=== PATIENT | male | born 1945 | race Caucasian/White ===

== ENCOUNTER 2017-10-24 10:03 | Observation (INO) | payer MEDICARE, OTHER ==
[~2017-10-24] VITALS: Ht 188 cm; Wt 90.9 kg
--- NOTE | 2017-10-24 10:03 | NUR ---
PRT TO ROOM FOR TREATMENT VIA WHEELCHAIR
[2017-10-24] MEDS ORDERED: NAPROXEN250 MG PO (10:13)
[2017-10-24] MEDS ORDERED: CENTRUM SILVER PO (10:13)
[2017-10-24] MEDS ORDERED: OMEPRAZOLE10 MG PO (10:14)
[2017-10-24] MEDS ORDERED: ASPIRIN EC325 MG PO (10:14)
[2017-10-24] MEDS ORDERED: CLARITIN-D1 TA2 PO (10:15)
[2017-10-24] MEDS ORDERED: LISINOPRIL20 MG PO (10:15)
[2017-10-24] MEDS ORDERED: PROVENTIL HFA IN (10:17)
[2017-10-24] MEDS ORDERED: [UNRECOGNIZED DRUG - CODE] EX (10:17)
[2017-10-24 10:37] LABS: HEMATOCRIT 42.7 % (39.0-50.0); HEMOGLOBIN 14.3 g/dl (14.0-18.0); IMMATURE GRANULOCYTES 0.5 % (0.0-1.0); MEAN CELL VOLUME 92.8 fL CALC (80.0-100.0); MEAN CORPUSCULAR HGB 31.1 pG CALC (26.0-32.0); MEAN CORPUSCULAR HGB CONC 33.5 g/L CALC (32.0-36.0); NEUT# 3.99 thou/uL (1.82-7.42); RED BLOOD COUNT 4.6 mill/uL (4.70-6.10); RED CELL DISTRI WIDTH 12.7 % (11.5-15.5)
[2017-10-24 11:00] LABS: ALBUMIN 4.5 g/dL (3.2-5.0); ALKALINE PHOSPHATASE 79 u/l (38-126); ANION GAP 17 (6-22 (CALC)); BILIRUBIN, TOTAL 1.1 mg/dL (0.0-1.4); BUN 32 mg/dL (8-23); BUN/CREATININE RATIO 22 (12-20 (CALC)); CALCIUM 9.8 mg/dL (8.4-10.2); CARBON DIOXIDE 26 mmol/l (22-30); CHLORIDE 104 mmol/l (95-108); CREATININE 1.5 mg/dL (0.7-1.3); GFR 46 ML/MIN (>=60 (CALC)); GFR FOR AFR.AMER. 55 ML/MIN (>=60 (CALC)); GLUCOSE 155 mg/dL (82-115); POTASSIUM 4.5 mmol/l (3.5-5.1); SGOT/AST 23 u/l (19-48); SGPT/ALT 35 u/l (11-66); SODIUM 142 mmol/l (137-146); TOTAL PROTEIN 7.5 g/dL (6.3-8.2)
[2017-10-24 11:10] LABS: MYOGLOBIN 100 ng/mL (0 - 121)
--- NOTE | 2017-10-24 11:36 | NUR ---
PT SITTING UP IN BED , NO DISTRESS NOTED AT THIS TIME
--- NOTE | 2017-10-24 11:37 | NUR ---
STATES ANTIVERT HAS NOT HELPED YET.
--- NOTE | 2017-10-24 12:02 | NUR ---
UNABLE TO GIVE REPORT AT THIS TIME, NURSE FOR PT WILL CALL ME BACK WHEN AVAILABLE.
--- NOTE | 2017-10-24 12:12 | NUR ---
REPORT GIVEN TO LONNY FOR CONTINUATION OF CARE. PT AT THIS TIME SAYS DIZZINESS HAS GONE AWAY.
--- NOTE | 2017-10-24 12:15 | NUR ---
PT TAKEN TO MED SURG PER STRETCHER. STABLE TO ROOM.
[2017-10-24 12:19] VITALS: BP 130/70
--- NOTE | 2017-10-24 12:19 | NUR ---
PT ARRIVED TO FLOOR VIA STRETCHER ACCOMPANIED BY ED STAFF. PT AMBULATES INDEPENDENTLY. DENIES DIZZINESS AND NAUSEA. REPORTS RESOLUTION OF SYMPTOMS THAT BROUGHT PT TO ER. PT ORIENTED TO ROOM AND EQUIPMENT. PLAN OF CARE DISCUSSED. CALL LIGHT REVIEWED AND IN REACH. PT STATES UNDERSTANDING.
[2017-10-24] MEDS ORDERED: LIPITOR20 M1 PO (12:44)
[2017-10-24 15:28] VITALS: BP 111/62
--- NOTE | 2017-10-24 15:37 | NUR ---
PT SITTING IN CHAIR AT BEDSIDE. DR. HALEY IN ROOM.
[2017-10-24 19:00] VITALS: BP 138/61
--- NOTE | 2017-10-24 19:45 | NUR ---
PT SITTING UP IN BED WATCHING TV. PT IS ALERT ABND ORIENTED X3. PERRLA. LUNGS ARE CLEAR. RESP ARE EVEN AND UNLABORED. TELE IN PLACE. HR REGULAR. PULSES PALPABLE THROUGHOUT. NO EDEMA NOTED. 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 FACE SYMETRICAL. FOOT STRENGTH SYMMETRICAL. PT DENIES DIZZINES. PT DENIES NAUSEA. BS ACTIVE. PT REPORTS A NORMAL BOWEL MOVEMENT YESTERDAY. #20 RAC. SALINE LOCKED. NO REDNESS OR EDEMA NOTED AT SITE. WILL CONTINUE TO MONITOR
--- NOTE | 2017-10-25 | NUR ---
PT RESTING IN BED WITH EYES CLOSED. RESP ARE EVEN AND UNLABORED. NO DISTRESS NOTED. TELE IN PLACE. WILL CONTINUE TO MONITOR
[2017-10-25 00:15] VITALS: BP 122/69
--- NOTE | 2017-10-25 04:17 | NUR ---
PT RESTING IN BED WITH EYES CLOSED. RESP ARE EVEN AND UNLABORED. NO DISTRESS NOTED. TELE IN PLACE. WILL CONTINUE TO MONITOR
[2017-10-25 04:55] VITALS: BP 104/58
--- NOTE | 2017-10-25 07:00 | NUR ---
RECEIVED BEDSIDE REPORT FROM MIRIAN GOMEZ. RESTING IN HIGH FOWLERS WATCHING TV. RESPS EVEN AND UNLABORED ON ROOM AIR, TELE MONITOR IN PLACE. DENIES PAIN OR DISCOMFORT. VOICES NO NEEDS AT THIS TIME. PLAN OF CARE DISCUSSED. SAFETY PRECAUTIONS REINFORCED. BED IN LOWEST POSITION WITH WHEELS LOCKED. CALL LIGHT WITHIN REACH. ENCOURAGED PT TO CALL FOR ANY NEEDS.
[2017-10-25 07:23] VITALS: BP 122/74
[2017-10-25 07:31] LABS: CALCIUM 9.8 mg/dL (8.4-10.2); CREATININE 1.4 mg/dL (0.7-1.3); POTASSIUM 4.9 mmol/l (3.5-5.1)
--- NOTE | 2017-10-25 09:00 | NUR ---
AMBULATING IN HALLWAY WITH STEADY GAIT ACCOMPANIED BY .
[2017-10-25 09:44] VITALS: BP 137/66
--- NOTE | 2017-10-25 09:50 | NUR ---
DR HALEY IN WITH PT, NEW ORDERS RECEIVED.
[2017-10-25] MEDS ORDERED: ANTIVERT12.5 MG PO (10:04)
--- NOTE | 2017-10-25 10:50 | NUR ---
Discharge instructions given. Patient verbalizes understanding of same. Discharged in stable condition via Wheelchair to Home with spouse. All belongings sent with pt.
== END 2017-10-25 10:54 | disposition home or self-care (01) ==
LOC: ED 10:03 → ED-I 11:26 → ED 11:39 → MS2 11:40
PROVIDERS: Emergency Medicine; ADMIT Internal Medicine; ATTEND Internal Medicine
DX: R42 Dizziness and giddiness (principal); I71.4 Abdominal aortic aneurysm, without rupture; I12.9 Hypertensive chronic kidney disease with stage 1 through stage 4 chronic kidney disease, or unspecified chronic kidney disease; N18.3 Chronic kidney disease, stage 3 (moderate); N17.9 Acute kidney failure, unspecified; E78.5 Hyperlipidemia, unspecified; J44.9 Chronic obstructive pulmonary disease, unspecified; Z87.891 Personal history of nicotine dependence; Z86.73 Personal history of transient ischemic attack (TIA), and cerebral infarction without residual deficits

== ENCOUNTER 2018-12-12 15:02 | Emergency (ER) | payer MEDICARE, OTHER ==
[~2018-12-12] VITALS: Ht 188 cm; Wt 90.0 kg
[~2018-12-12 15:02] MED LIST: ANTIVERT PO; ANTIVERT12.5 MG PO; ASPIRIN EC325 MG PO; ATORVASTATIN CA20 MG PO; CENTRUM SILVER PO; CLARITIN-D1 TA2 PO; LIPITOR20 M1 PO; LISINOPRIL20 MG PO; LISINOPRIL40 MG PO; MELOXICAM15 MG PO; NAPROXEN250 MG PO; OMEPRAZOLE10 MG PO; OMEPRAZOLE20 MG PO; PROVENTIL HFA IN; [UNRECOGNIZED DRUG - CODE] EX
[2018-12-12 18:06] LABS: HEMOGLOBIN 13.5 g/dl (14.0-18.0); IMMATURE GRANULOCYTES 0.3 % (0.0-5.0); MEAN CELL VOLUME 94.5 fL CALC (80.0-100.0); MEAN CORPUSCULAR HGB 31.1 pG CALC (26.0-32.0); MEAN CORPUSCULAR HGB CONC 32.9 g/L CALC (32.0-36.0); NEUT# 4.77 thou/uL (1.82-7.42); RED BLOOD COUNT 4.34 mill/uL (4.70-6.10); RED CELL DISTRI WIDTH 13.2 % (11.5-15.5)
[2018-12-12 18:30] VITALS: BP 184/76
[2018-12-12 18:30] LABS: ALBUMIN 4.3 g/dL (3.2-5.0); ALKALINE PHOSPHATASE 80 u/l (38-126); ANION GAP 16 (6-22 (CALC)); BILIRUBIN, TOTAL 0.7 mg/dL (0.0-1.4); BUN 29 mg/dL (8-23); BUN/CREATININE RATIO 16 (12-20 (CALC)); CARBON DIOXIDE 24 mmol/l (22-30); CHLORIDE 106 mmol/l (95-108); CREATININE 1.9 mg/dL (0.7-1.3); GFR 35 ML/MIN (>=60 (CALC)); GFR FOR AFR.AMER. 42 ML/MIN (>=60 (CALC)); POTASSIUM 4.4 mmol/l (3.5-5.1); SGOT/AST 22 u/l (19-48); SODIUM 141 mmol/l (137-146); TOTAL PROTEIN 7.8 g/dL (6.3-8.2)
[2018-12-12 19:00] LABS: TSH, 3RD GENERATION 1.94 uIU/mL (0.47 - 4.68)
[2018-12-12] MEDS ORDERED: ASPIRIN81 MG PO (19:06)
== END 2018-12-12 18:35 | disposition short-term general hospital (02) ==
LOC: ED 15:02
PROVIDERS: Emergency Medicine
DX: R00.1 Bradycardia, unspecified (principal); R91.8 Other nonspecific abnormal finding of lung field; I10 Essential (primary) hypertension; M19.90 Unspecified osteoarthritis, unspecified site; J45.909 Unspecified asthma, uncomplicated; Z86.73 Personal history of transient ischemic attack (TIA), and cerebral infarction without residual deficits

== ENCOUNTER → 2019-01-17 | Outpatient (REF) | payer MEDICARE, OTHER ==
[~2019-01-17] MED LIST changes: +AMOXICILLIN875 MG PO; +ASPIRIN81 MG PO
== END | disposition home or self-care (01) ==
LOC: CT 08:30
PROVIDERS: ATTEND Surgery Vascular Surgery
DX: I71.4 Abdominal aortic aneurysm, without rupture (principal)

== ENCOUNTER 2019-01-24 14:04 | Emergency (ER) | payer MEDICARE, OTHER ==
[~2019-01-24] VITALS: Ht 188 cm; Wt 90.0 kg
[~2019-01-24 14:04] MED LIST changes: -AMOXICILLIN875 MG PO
[2019-01-24] MEDS ORDERED: AMOXICILLIN875 MG PO (15:42)
[2019-01-24 15:49] VITALS: BP 109/68
== END 2019-01-24 16:03 | disposition home or self-care (01) ==
LOC: ED 14:04
DX: J02.0 Streptococcal pharyngitis (principal); I10 Essential (primary) hypertension; J45.909 Unspecified asthma, uncomplicated; M19.90 Unspecified osteoarthritis, unspecified site; I71.9 Aortic aneurysm of unspecified site, without rupture; K75.9 Inflammatory liver disease, unspecified; Z95.0 Presence of cardiac pacemaker; Z86.73 Personal history of transient ischemic attack (TIA), and cerebral infarction without residual deficits

== ENCOUNTER 2019-03-07 16:02 | Emergency (ER) | payer MEDICARE, OTHER ==
[~2019-03-07] VITALS: Ht 188 cm; Wt 100.0 kg
[~2019-03-07 16:02] MED LIST changes: +AMOXICILLIN875 MG PO
[2019-03-07 16:24] VITALS: BP 139/73
[2019-03-07 16:36] LABS: HEMATOCRIT 34.2 % (39.0-50.0); HEMOGLOBIN 11.2 g/dl (14.0-18.0); IMMATURE GRANULOCYTES 2.6 % (0.0-5.0); MEAN CELL VOLUME 94.5 fL CALC (80.0-100.0); MEAN CORPUSCULAR HGB 30.9 pG CALC (26.0-32.0); MEAN CORPUSCULAR HGB CONC 32.7 g/L CALC (32.0-36.0); NEUT# 8.97 thou/uL (1.82-7.42); RED BLOOD COUNT 3.62 mill/uL (4.70-6.10); RED CELL DISTRI WIDTH 14.5 % (11.5-15.5)
[2019-03-07 16:48] LABS: ALBUMIN 3.9 g/dL (3.2-5.0); BILIRUBIN, TOTAL 1.4 mg/dL (0.0-1.4); BUN 22 mg/dL (8-23); BUN/CREATININE RATIO 18 (12-20 (CALC)); CARBON DIOXIDE 24 mmol/l (22-30); CHLORIDE 101 mmol/l (95-108); CREATININE 1.2 mg/dL (0.7-1.3); GFR 59 ML/MIN (>=60 (CALC)); GFR FOR AFR.AMER. > 60 ML/MIN (>=60 (CALC)); SGOT/AST 37 u/l (19-48); SODIUM 138 mmol/l (137-146); TOTAL PROTEIN 6.7 g/dL (6.3-8.2)
[2019-03-07 16:49] LABS: ALKALINE PHOSPHATASE 131 u/l (38-126); ANION GAP 18 (6-22 (CALC)); POTASSIUM 5.2 mmol/l (3.5-5.1)
== END 2019-03-07 19:13 | disposition other institution (70) ==
LOC: ED 16:02
PROVIDERS: Family Medicine
DX: I71.03 Dissection of thoracoabdominal aorta (principal); Z98.890 Other specified postprocedural states; R10.32 Left lower quadrant pain; R11.0 Nausea; R10.33 Periumbilical pain; R94.31 Abnormal electrocardiogram [ECG] [EKG]
CPT/HCPCS: Q9967

== ENCOUNTER 2019-12-15 08:28 | Observation (INO) | payer MEDICARE, OTHER ==
[~2019-12-15] VITALS: Ht 188 cm; Wt 82.0 kg
[~2019-12-15 08:28] MED LIST changes: +KAPSPARGO SPRIN25 MG PO; +LEVITRA10 MG PO; +OMEPRAZOLE20 M2 PO; +TRAMADOL HCL50 MG PO; +VOLTAREN GEL
[2019-12-15] MEDS ORDERED: CENTRUM PO (09:02)
[2019-12-15 09:12] LABS: IMMATURE GRANULOCYTES 0.4 % (0.0-5.0); MEAN CELL VOLUME 90.9 fL CALC (80.0-100.0); MEAN CORPUSCULAR HGB 29.8 pG CALC (26.0-32.0); MEAN CORPUSCULAR HGB CONC 32.8 g/L CALC (32.0-36.0); NEUT# 4.75 thou/uL (1.82-7.42); RED BLOOD COUNT 3.62 mill/uL (4.70-6.10); RED CELL DISTRI WIDTH 13.2 % (11.5-15.5)
[2019-12-15 09:13] LABS: HEMATOCRIT 32.9 % (39.0-50.0); HEMOGLOBIN 10.8 g/dl (14.0-18.0)
[2019-12-15 09:29] LABS: ANION GAP 15 (6-22 (CALC)); BUN 49 mg/dL (8-23); CARBON DIOXIDE 25 mmol/l (22-30); CHLORIDE 103 mmol/l (95-108); SODIUM 138 mmol/l (137-146)
[2019-12-15 09:30] LABS: BUN/CREATININE RATIO 20 (12-20 (CALC)); CREATININE 2.5 mg/dL (0.7-1.3); GFR 25 ML/MIN (>=60 (CALC)); GFR FOR AFR.AMER. 31 ML/MIN (>=60 (CALC)); POTASSIUM 5.2 mmol/l (3.5-5.1)
[2019-12-15 13:35] VITALS: BP 145/80
[2019-12-15 15:17] VITALS: BP 164/84
[2019-12-15 19:05] VITALS: BP 157/80
[2019-12-16] VITALS: BP 137/74
[2019-12-16 04:00] VITALS: BP 135/70
[2019-12-16 06:06] LABS: HEMATOCRIT 31.4 % (39.0-50.0); HEMOGLOBIN 10.5 g/dl (14.0-18.0); MEAN CELL VOLUME 90.5 fL CALC (80.0-100.0); MEAN CORPUSCULAR HGB 30.3 pG CALC (26.0-32.0); MEAN CORPUSCULAR HGB CONC 33.4 g/L CALC (32.0-36.0); RED BLOOD COUNT 3.47 mill/uL (4.70-6.10); RED CELL DISTRI WIDTH 13.2 % (11.5-15.5)
[2019-12-16 06:21] LABS: POTASSIUM 4.8 mmol/l (3.5-5.1)
[2019-12-16 06:22] LABS: CHOLESTEROL HDL RATIO 3.9 (<4.4 (CALC)); MAGNESIUM 1.7 mg/dL (1.6-2.3)
[2019-12-16 08:50] VITALS: BP 164/71
[2019-12-16 09:11] LABS: URINE BILIRUBIN - DIPSTICK NEGATIVE (NEGATIVE); URINE BLOOD DIPSTICK NEGATIVE (NEGATIVE); URINE CLARITY CLEAR; URINE COLOR YELLOW; URINE GLUCOSE - DIPSTICK NEGATIVE (NEGATIVE); URINE KETONE NEGATIVE (NEGATIVE); URINE LEUK ESTERASE NEGATIVE (Negative); URINE NITRITE - DIPSTICK NEGATIVE (Negative); URINE PROTEIN - DIPSTICK NEGATIVE (NEG-TRACE); URINE UROBILINOGEN - DIPSTICK 0.2 E.U./dL (0.2)
[2019-12-16 11:06] VITALS: BP 166/80
[2019-12-16] MEDS ORDERED: TRAMADOL HCL50 MG PO (11:54)
[2020-07-14] MEDS ORDERED: ASPIRIN325 MG PO (07:07)
[2020-07-14] MEDS ORDERED: CLARITIN RDT10 MG PO (07:08)
[2020-07-14] MEDS ORDERED: PROVENTIL HFA IN (07:08)
[2020-07-14] MEDS ORDERED: METOPROL TAR25 M1 PO (07:09)
[2020-07-14] MEDS ORDERED: NORVASC5 M1 PO (07:09)
[2020-07-14] MEDS ORDERED: LOSARTAN POTASS25 MG PO (07:09)
[2020-07-14] MEDS ORDERED: CIALIS5 MG PO (07:10)
[2020-07-27] MEDS ORDERED: CENTRUM SILVER PO (09:38)
[2020-07-27] MEDS ORDERED: TRAMADOL HCL50 MG PO (09:38)
[2020-07-27] MEDS ORDERED: METOPROL TAR25 MG PO (09:39)
== END 2019-12-16 13:40 | disposition home or self-care (01) ==
LOC: ED 08:28 → ED-I 11:37 → ED 11:48 → MS2 11:49
PROVIDERS: Family Medicine; ADMIT Internal Medicine; ATTEND Internal Medicine
DX: R07.9 Chest pain, unspecified (principal); N17.9 Acute kidney failure, unspecified; I12.9 Hypertensive chronic kidney disease with stage 1 through stage 4 chronic kidney disease, or unspecified chronic kidney disease; N18.3 Chronic kidney disease, stage 3 (moderate); I71.4 Abdominal aortic aneurysm, without rupture; I71.2 Thoracic aortic aneurysm, without rupture; R07.81 Pleurodynia; Z87.891 Personal history of nicotine dependence; Z98.890 Other specified postprocedural states; Z86.73 Personal history of transient ischemic attack (TIA), and cerebral infarction without residual deficits
CPT/HCPCS: G0378; Q9967

== ENCOUNTER 2020-08-03 06:29 | Day surgery (SDC) | payer MEDICARE, OTHER ==
[~2020-08-03] VITALS: Ht 188 cm; Wt 83.0 kg
[~2020-08-03 06:29] MED LIST changes: +ASPIRIN325 MG PO; +CENTRUM PO; +CIALIS5 MG PO; +CLARITIN RDT10 MG PO; +LOSARTAN POTASS25 MG PO; +METOPROL TAR25 M1 PO; +METOPROL TAR25 MG PO; +NORVASC5 M1 PO
[2020-08-03 08:30] VITALS: BP 146/69
== END 2020-08-03 08:50 | disposition home or self-care (01) ==
LOC: ENDO 06:29
PROVIDERS: ATTEND Surgery
PROC: 0DBF8ZX Excision of Right Large Intestine, Via Natural or Artificial Opening Endoscopic, Diagnostic (ICD-10-PCS; principal; 2020-08-03)
DX: Z12.11 Encounter for screening for malignant neoplasm of colon (principal); K63.5 Polyp of colon; K57.30 Diverticulosis of large intestine without perforation or abscess without bleeding; I10 Essential (primary) hypertension; Z95.0 Presence of cardiac pacemaker; Z20.828 Contact with and (suspected) exposure to other viral communicable diseases

== ENCOUNTER 2022-07-29 18:36 | Emergency (ER) | payer MEDICARE, OTHER ==
[~2022-07-29] VITALS: Ht 188 cm; Wt 87.0 kg
[~2022-07-29 18:36] MED LIST changes: +ZPAK PO
[2022-07-29 20:04] LABS: HEMATOCRIT 38.8 % (39.0-50.0); HEMOGLOBIN 12.9 g/dl (14.0-18.0); IMMATURE GRANULOCYTES 0.3 % (0.0-5.0); MEAN CELL VOLUME 93.7 fL CALC (80.0-100.0); MEAN CORPUSCULAR HGB 31.2 pG CALC (26.0-32.0); MEAN CORPUSCULAR HGB CONC 33.2 g/dL CAL (32.0-36.0); NEUT# 6.97 thou/uL (1.82-7.42); RED BLOOD COUNT 4.14 mill/uL (4.70-6.10); RED CELL DISTRI WIDTH 13.2 % (11.5-15.5)
[2022-07-29 20:16] LABS: ALBUMIN 4.3 g/dL (3.2-5.0); BILIRUBIN, TOTAL 1.3 mg/dL (0.0-1.4); CREATININE 1.8 mg/dL (0.7-1.3); POTASSIUM 4.3 mmol/l (3.5-5.1); TOTAL PROTEIN 7.8 g/dL (6.3-8.2)
[2022-07-29] MEDS ORDERED: PAXLOVID PO (21:21)
[2022-07-29] MEDS ORDERED: FLONASE AL50 MCG/ACT (21:22)
[2022-07-29] MEDS ORDERED: MEDDOSEPAK PO (21:22)
[2022-07-29 22:02] VITALS: BP 159/91
== END 2022-07-29 22:52 | disposition home or self-care (01) ==
LOC: ED 18:36
PROVIDERS: Emergency Medicine
DX: U07.1 COVID-19 (principal); R09.81 Nasal congestion; J44.9 Chronic obstructive pulmonary disease, unspecified; I10 Essential (primary) hypertension; I25.10 Atherosclerotic heart disease of native coronary artery without angina pectoris